=== PATIENT | male | born 1990 | race Caucasian/White ===

== ENCOUNTER 2024-05-31 13:42 | Inpatient (IN) | payer SELFPAY ==
[2024-05-31 14:38] LABS: #Basophils 0.03 10x3/uL (0.0-0.2); #Eosinphils 0.27 10x3/uL (0.0-0.5); #Monocytes 0.77 10x3/uL (0.0-1.1); #Neutrophils 4.06 10x3/uL (1.5-8.4); %Basophils 0.5 % (0.0-2.0); %Eosinophils 4.1 % (0.0-6.0); %Lymphocytes 21.4 % (18.0-47.0); %Monocytes 11.8 % (0.0-10.0); Hematocrit 29.5 % (38.8-50.0); Hemoglobin 10.1 g/dL (13.5-17.5); Mean Corpuscular HGB CONC 34.2 g/dL (32.0-36.0); Mean Corpuscular Hemoglobin 31.2 pg (27.0-33.0); Platelet Count 247 10x3/uL (150-450); RBC Distribution Width 12.1 % (11.5-14.5); Red Blood Cell (RBC) Count 3.24 10x6/uL (4.32-5.72); White Blood Cell (WBC) Count 6.5 10x3/uL (3.5-10.5)
[2024-05-31 15:01] LABS: ALT (SGPT) 20 U/L (8-55); AST (SGOT) 19 U/L (5-34); Albumin 3.8 g/dL (3.5-5.0); Alkaline Phosphatase 65 U/L (40-110); Anion Gap 13 mmol/L (10-20); BUN (Urea Nitrogen) 12 mg/dL (8.9-20.6); Bilirubin, Total 0.3 mg/dL (0.2-1.2); Calc. Creatinine Clearance 0 mL/min (70-130); Calcium 9.1 mg/dL (7.8-10.44); Carbon Dioxide 27 mmol/L (22-29); Chloride 104 mmol/L (98-107); Estimated GFR 120; Globulin 2.2 g/dL (2.4-3.5); Glucose 81 mg/dL (70-105); Lipase 13 U/L (8-78); Potassium 3.9 mmol/L (3.5-5.1); Sodium 140 mmol/L (136-145)
[2024-05-31 15:03] LABS: Troponin I Less than 0.010 ng/mL (< 0.028)
[2024-05-31] MEDS ORDERED: Lidocaine 1% w/Epinephrine 1:200K 30 ML VIAL ONE (16:30)
[2024-05-31] MEDS ORDERED: fentaNYL 50 mcg/mL 1 mL Vial ONE (17:03)
[2024-05-31] MEDS ORDERED: Dextrose 50% Abboject 50 ML SYRINGE SLOW IVP PRN (17:41)
[2024-05-31] MEDS ORDERED: Dextrose 5% in Water 1,000 ML IV PRN (17:41)
[2024-05-31] MEDS ORDERED: Glucagon 1 MG/ML KIT IM PRN (17:41)
[2024-05-31] MEDS ORDERED: Morphine 4 MG/ML VIAL ONE (18:29)
[2024-05-31] MEDS ORDERED: Ketorolac Tromethamine 30 MG (1 mL) VIAL ONE (18:29)
[2024-05-31 21:26] VITALS: BMI 15.4
[2024-05-31] MEDS ORDERED: Cyclobenzaprine 10 MG TAB PO PRN (21:30)
[2024-05-31] MEDS: Gabapentin 100 MG CAP PO SCH (21:52)
[2024-05-31] MEDS: D5 1/2 NS w/20 mEq KCL 1,000 ML IV SCH (21:57)
[2024-05-31] MEDS: traMADol HCl 50 MG TAB PO SCH (21:58)
[2024-05-31] MEDS ORDERED: Rib Fracture Protocol PO SCH (22:00)
[2024-06-01] MEDS: Acetaminophen 500 MG TAB PO SCH (00:07)
[2024-06-01] MEDS: Ibuprofen 200 MG TAB PO SCH (00:08)
[2024-06-01] MEDS: Ipratropium/Albuterol 3 ML NEB NEB SCH (00:25)
[2024-06-01 09:36] VITALS: BMI 15.4
[2024-06-01] MEDS: Morphine 2 MG/ML VIAL SLOW IVP PRN (09:36)
[2024-06-01] MEDS: Gabapentin 100 MG CAP PO SCH (09:37)
[2024-06-01] MEDS: Nicotine 21 MG PATCH TOP SCH (09:38)
[2024-06-02] MEDS ORDERED: Iopamidol 300 61% 100 ML VIAL FS ONE (10:12)
[2024-06-02] MEDS ORDERED: Ibuprofen 200 MG TAB PO PRN (14:12)
[2024-06-02] MEDS ORDERED: traMADol HCl 50 MG TAB PO PRN (14:14)
[2024-06-02] MEDS: Acetaminophen 500 MG TAB PO SCH (17:47)
[2024-06-02] MEDS: Triple Antibiotic Oint 1 GM Packet TOP SCH (19:40)
[2024-06-02] MEDS: Enoxaparin 40 MG (0.4 mL) SYRINGE SC SCH (20:20)
[2024-06-02 20:22] VITALS: BP 113/69; TEMP 98.3
== END 2024-06-02 20:51 | disposition home or self-care (01) | DRG 188 ==
LOC: CSHERS 13:42 → CSHERHOLD 17:39 → CSHTELE 20:56 → OBSVTOIN 06-02 14:19
PROVIDERS: ADMIT Surgery; ATTEND Surgery
PROC: 0W9B30Z Drainage of Left Pleural Cavity with Drainage Device, Percutaneous Approach (ICD-10-PCS; principal; 2024-05-31)
DX: J94.2 Hemothorax (principal); F17.200 Nicotine dependence, unspecified, uncomplicated
CPT/HCPCS: 36415; 71045; 71260; 80053; 83690; 84484; 85025; 93005; 94640; 94762; 94799; 96372; 96374; 96375; J1885; J2272; J3010; J3480; J7620; Q9967